=== PATIENT | male | born 1975 | race Caucasian/White ===

== ENCOUNTER 2019-07-16 06:13 | Emergency (ER) | payer MEDICAID, OTHER ==
[~2019-07-16] VITALS: Ht 182.9 cm; Wt 72.6 kg
--- NOTE | 2019-07-16 06:30 | NUR ---
DANIELA 89 REPORTING "MOM COULD NOT WAKE HIM UP" PER EMS, THE RA WERE ABLE TO EASILY WAKE THE PT UP ON ARRIVAL. PT CURRENTLY A, OX3. DOES NOT KNOW WHY HE IS AT THE HOSPITAL. ABLE TO ANSWER ALL THE QUESTIONS BUT SEEMS A LITTLE SLOW. PT DENIED USING ALCOHOL, OR DRUGS. PT WA PLACED ON A MONITOR . VSS. WILL CONT TO MONITOR ,
[2019-07-16 07:11] LABS: BASOPHILS % (AUTO) 0.7 % (0.0-2.0); EOSINOPHILS % (AUTO) 0.1 % (0.0-6.0); HEMATOCRIT 53 % (39-51); HEMOGLOBIN 17.9 g/dL (13.5-17.5); LYMPHOCYTES # (AUTO) 1.6 /CMM (0.8-4.8); LYMPHOCYTES % (AUTO) 40.3 % (20.0-44.0); MEAN CORPUSCULAR HGB CONC 34 g/dl (31.0-36.0); MEAN CORPUSCULAR VOLUME 100 fL (80-96); MONOCYTES # (AUTO) 0.5 /CMM (0.1-1.30); MONOCYTES % (AUTO) 13.8 % (2.0-12.0); NEUTROPHILS # (AUTO) 1.8 /CMM (1.8-8.9); NEUTROPHILS % (AUTO) 45.1 % (43.0-81.0); PLATELET COUNT (AUTO) 221 /CMM (150-450); RED BLOOD CELL COUNT(AUTO) 5.25 MIL/uL (4.5-6.0); WHITE BLOOD COUNT (AUTO) 3.9 K/uL (4.3-11.0)
--- NOTE | 2019-07-16 07:12 | NUR ---
RECEIVED REPORT FROM NICOLÁS CEBALLOS FOR CLARIBEL, PT IS AAOX3, NOT IN RESPIRATORY DISTRESS, V/S STABLE, KEPT RESTED AND COMFORTABLE, WILL CONTINUE TO MONITOR.
[2019-07-16 07:51] LABS: ACETAMINOPHEN 8 ug/ml (10-30); ALANINE AMINOTRANSFERASE 108 U/L (12-78); ALBUMIN 4.3 g/dL (3.4-5.0); ALCOHOL, BLOOD 270 mg/dL (0-0); ALKALINE PHOSPHATASE 76 U/L (46-116); BILIRUBIN,DIRECT 0.3 mg/dL (0.0-0.2); BILIRUBIN,TOTAL 1.4 mg/dL (0.2-1.0); CALCIUM, SERUM 8.7 mg/dL (8.5-10.1); CHLORIDE 98 mmol/L (98-107); CREATININE 0.7 mg/dL (0.6-1.3); GLUCOSE 108 mg/dL (74-106); POTASSIUM 3.5 mmol/L (3.5-5.1); SODIUM SERUM 139 mmol/L (136-145); TOTAL PROTEIN, SERUM 7.8 g/dL (6.4-8.2)
[2019-07-16 08:08] LABS: ASPARTATE AMINOTRANSFERASE 114 U/L (15-37); CARBON DIOXIDE 24 mmol/L (21-32); UREA NITROGEN, BLOOD 8 mg/dL (7-18)
[2019-07-16 08:52] LABS: SALICYLATE < 0.2 mg/dL (2.8-20.0)
--- NOTE | 2019-07-16 12:41 | NUR ---
PT IS ASLEEP ON BED, EASILY AROUSABLE, AAOX3, NOT IN RESPIRATORY DISTRESS ,V/S STABLE, KEPT RESTED AND COMFORTABLE, WILL CONTINUE TO MONITOR.
[2019-07-16 12:51] VITALS: BP 133/81
--- NOTE | 2019-07-16 12:51 | NUR ---
Patient discharged to home in stable condition. Written and verbal after care instructions given. Patient verbalizes understanding of instruction.
== END 2019-07-16 12:52 | disposition home or self-care (01) ==
LOC: ER 06:18
DX: T40.601A Poisoning by unspecified narcotics, accidental (unintentional), initial encounter (principal); T40.5X1A Poisoning by cocaine, accidental (unintentional), initial encounter; R40.0 Somnolence; F19.129 Other psychoactive substance abuse with intoxication, unspecified; Y92.019 Unspecified place in single-family (private) house as the place of occurrence of the external cause; Z82.49 Family history of ischemic heart disease and other diseases of the circulatory system
CPT/HCPCS: 36415; 80048; 80076; 80305; 80307; 80329; 85025; 99285; G0480

== ENCOUNTER 2021-09-04 08:52 | Emergency (ER) | payer MEDICAID, OTHER ==
[~2021-09-04] VITALS: Ht 182.9 cm; Wt 74.8 kg
--- NOTE | 2021-09-04 08:52 | NUR ---
PT [id number] WALKING AROUND [facility], "OD ON HEROINE AND WEED" PT IS AAOX2, NOT IN RESPIRATORY DISTRESS, V/S STABLE, KEPT RESTED AND COMFORATBLE. HOOKED TO V/S MONITOR, KEPT RESTED AND COMFORTABLE. WILL CONTINUE TO MONITOR.
--- NOTE | 2021-09-04 09:40 | NUR ---
SEEN AND EXAMINED BY .
[2021-09-04 10:00] LABS: BASOPHILS # (AUTO) 0.2 K/uL (0.0-0.2); BASOPHILS % (AUTO) 1.2 % (0.0-2.0); EOSINOPHILS % (AUTO) 0.1 % (0.0-6.0); HEMATOCRIT 44 % (39-51); HEMOGLOBIN 14.4 g/dL (13.5-17.5); LYMPHOCYTES # (AUTO) 0.5 K/uL (0.8-4.8); LYMPHOCYTES % (AUTO) 2.7 % (20.0-44.0); MEAN CORPUSCULAR HGB CONC 33 g/dl (31.0-36.0); MEAN CORPUSCULAR VOLUME 96 fL (80-96); MONOCYTES # (AUTO) 0.7 K/uL (0.1-1.30); MONOCYTES % (AUTO) 4.1 % (2.0-12.0); NEUTROPHILS # (AUTO) 15.8 K/uL (1.8-8.9); NEUTROPHILS % (AUTO) 91.9 % (43.0-81.0); PLATELET COUNT (AUTO) 207 K/uL (150-450); RED BLOOD CELL COUNT(AUTO) 4.55 MIL/uL (4.5-6.0); WHITE BLOOD COUNT (AUTO) 17.2 K/uL (4.3-11.0)
[2021-09-04 10:06] LABS: CALCIUM, SERUM 9.4 mg/dL (8.5-10.1); CARBON DIOXIDE 26 mmol/L (21-32); CHLORIDE 104 mmol/L (98-107); CREATININE 1.3 mg/dL (0.6-1.3); GLUCOSE 73 mg/dL (74-106); POTASSIUM 3.7 mmol/L (3.5-5.1); SODIUM SERUM 142 mmol/L (136-145); UREA NITROGEN, BLOOD 24 mg/dL (7-18)
[2021-09-04 10:12] LABS: ACETAMINOPHEN 29 ug/ml (10-30); ALANINE AMINOTRANSFERASE 24 U/L (12-78); ALBUMIN 4.2 g/dL (3.4-5.0); ALCOHOL, BLOOD < 3 mg/dL (0-0); ALKALINE PHOSPHATASE 80 U/L (46-116); ASPARTATE AMINOTRANSFERASE 42 U/L (15-37); BILIRUBIN,DIRECT 0.2 mg/dL (0.0-0.2); BILIRUBIN,TOTAL 0.8 mg/dL (0.2-1.0); TOTAL PROTEIN, SERUM 7.9 g/dL (6.4-8.2)
[2021-09-04] MEDS ORDERED: IV NS 0.9% 1,000 ML BAG IV ONE (11:00)
--- NOTE | 2021-09-04 11:23 | NUR ---
URINE SPECIMEN COLLECTED AND SENT TO LAB.
--- NOTE | 2021-09-04 11:24 | NUR ---
UNABLE TO ESTABLISHED IV LINE. CALLED HOUSE SUP FOR MID LINE.
--- NOTE | 2021-09-04 11:38 | NUR ---
MIDLINE NURSE AT BEDLINE FOR MIDLINE INSERTION
[2021-09-04 11:47] LABS: BILIRUBIN,URINE SMALL (NEGATIVE); COLOR,URINE ORANGE (YELLOW); LEUKOCYTE ESTERASE ,URINE NEGATIVE (NEGATIVE); NITRITE, URINE NEGATIVE (NEGATIVE); PROTEIN,URINE 30 mg/dl (NEGATIVE); UGLUCOSE NEGATIVE (NEGATIVE); UROBILINOGEN,URINE 0.2 EU/dL (0.2)
[2021-09-04 12:01] LABS: BACTERIA,URINE Moderate /HPF (None Seen); SPERM,URINE Many /HPF (None Seen); SQUAMOUS EPITHELIAL CELL,UR Moderate /HPF (None Seen)
--- NOTE | 2021-09-04 16:23 | NUR ---
PATIENT CAN EAT ACCORDING TO DR GOLDMAN
--- NOTE | 2021-09-04 17:25 | NUR ---
COVID SWAB DONE AND SENT TO LAB
--- NOTE | 2021-09-04 18:10 | NUR ---
PT STATED HE IS NOT SUICIDAL AND WANTS TO BE DISCHARGED. AWARE.
--- NOTE | 2021-09-04 18:19 | NUR ---
IV removed. Catheter intact and site benign. Pressure and 4x4 applied to site. No bleeding noted. Patient discharged to home in stable condition. Written and verbal after care instructions given. Patient verbalizes understanding of instruction.
[2021-09-04 18:21] VITALS: BP 128/81
[2021-09-04] MEDS ORDERED: NALO4SPR BNOSTRILS (18:33)
== END 2021-09-04 18:37 | disposition home or self-care (01) ==
LOC: ER 08:56
DX: R45.851 Suicidal ideations (principal); F19.129 Other psychoactive substance abuse with intoxication, unspecified; R44.0 Auditory hallucinations; Z59.00 Homelessness unspecified; R00.0 Tachycardia, unspecified; D72.829 Elevated white blood cell count, unspecified; Z20.822 Contact with and (suspected) exposure to COVID-19
CPT/HCPCS: 36415; 71045; 80048; 80076; 80143; 80307; 80320; 81001; 85025; 87086; 87426; 96360; 99285; C9803; J7030 ×2; G0480

== ENCOUNTER 2021-09-05 20:10 | Emergency (ER) | payer OTHER ==
[~2021-09-05] VITALS: Ht 182.9 cm; Wt 72.6 kg
[~2021-09-05 20:10] MED LIST: NALO4SPR BNOSTRILS
--- NOTE | 2021-09-05 23:11 | NUR ---
CALLED FOR TRIAGE. NO ANSWER
--- NOTE | 2021-09-06 01:32 | NUR ---
BIBS FOR C/O DISTUEBED THOUGHT AND THINKING OF HURTING HIMSELF WITH NO SPECIFIC PLAN. REQUESTING VOLUNTARY PSYCH ADMISSION. PT ALERT. TOLERATING R/A WELL WITH NO SOB. PT AMBULATORY WITH STEADY GAIT. SAFETY MEASURES IN PLACE. PT IN GOWN AND BELONGINGS COLLECTED.
--- NOTE | 2021-09-06 01:44 | NUR ---
URINE AND COVID SAMPLE COLLECTED AND SENT TO LAB
--- NOTE | 2021-09-06 01:52 | NUR ---
CATERING STAFF MEMBER AT PT'S BEDSIDE
[2021-09-06 02:17] LABS: BASOPHILS # (AUTO) 0.1 K/uL (0.0-0.2); BASOPHILS % (AUTO) 1.2 % (0.0-2.0); HEMATOCRIT 44 % (39-51); HEMOGLOBIN 14.8 g/dL (13.5-17.5); LYMPHOCYTES # (AUTO) 2.3 K/uL (0.8-4.8); LYMPHOCYTES % (AUTO) 33.9 % (20.0-44.0); MEAN CORPUSCULAR HGB CONC 34 g/dl (31.0-36.0); MEAN CORPUSCULAR VOLUME 95 fL (80-96); MONOCYTES # (AUTO) 0.3 K/uL (0.1-1.30); MONOCYTES % (AUTO) 4.7 % (2.0-12.0); NEUTROPHILS # (AUTO) 3.7 K/uL (1.8-8.9); NEUTROPHILS % (AUTO) 55.2 % (43.0-81.0); PLATELET COUNT (AUTO) 188 K/uL (150-450); RED BLOOD CELL COUNT(AUTO) 4.62 MIL/uL (4.5-6.0); WHITE BLOOD COUNT (AUTO) 6.7 K/uL (4.3-11.0)
[2021-09-06 02:26] LABS: CALCIUM, SERUM 8.8 mg/dL (8.5-10.1); CARBON DIOXIDE 30 mmol/L (21-32); CHLORIDE 104 mmol/L (98-107); CREATININE 0.7 mg/dL (0.6-1.3); GLUCOSE 99 mg/dL (74-106); POTASSIUM 3.7 mmol/L (3.5-5.1); SODIUM SERUM 138 mmol/L (136-145); UREA NITROGEN, BLOOD 15 mg/dL (7-18)
[2021-09-06 02:50] LABS: BILIRUBIN,URINE SMALL (NEGATIVE); COLOR,URINE YELLOW (YELLOW); LEUKOCYTE ESTERASE ,URINE NEGATIVE (NEGATIVE); NITRITE, URINE NEGATIVE (NEGATIVE); PH,URINE 6.5 (5.0-8.0); PROTEIN,URINE TRACE mg/dl (NEGATIVE); UGLUCOSE NEGATIVE (NEGATIVE)
[2021-09-06 03:03] LABS: ALCOHOL, BLOOD < 3 mg/dL (0-0); ALKALINE PHOSPHATASE 70 U/L (46-116); ASPARTATE AMINOTRANSFERASE 209 U/L (15-37); BILIRUBIN,DIRECT 0.1 mg/dL (0.0-0.2); BILIRUBIN,TOTAL 0.4 mg/dL (0.2-1.0); TOTAL PROTEIN, SERUM 7.6 g/dL (6.4-8.2)
[2021-09-06] MEDS ORDERED: IBUPROFEN 400 MG TABLET PO ONE (03:30)
[2021-09-06 03:31] LABS: ACETAMINOPHEN 0 ug/ml (10-30)
[2021-09-06] MEDS ORDERED: IBUPROFEN 400 MG TABLET ONE (03:41)
[2021-09-06 03:50] LABS: ALANINE AMINOTRANSFERASE 95 U/L (12-78)
--- NOTE | 2021-09-06 06:06 | NUR ---
FACESHEET AND CLINICALS FAXED TO [facility].
--- NOTE | 2021-09-06 08:22 | NUR ---
PER INTAKE NO ACCEPTANCE YET FROM THE SUP. WILL CONTINUE TO FOLLOW UP.
[2021-09-06] MEDS ORDERED: clonazePAM 1 MG TABLET ONE (08:58)
[2021-09-06] MEDS ORDERED: clonazePAM 1 MG TABLET PO ONE (09:00)
--- NOTE | 2021-09-06 09:22 | NUR ---
NICHO MORAN FROM INTAKE TO F/U ON TX,WAITING ON BE
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
--- NOTE | 2021-09-06 12:30 | NUR ---
LUNCH SERVED. THE PATIENT TOLERATED WELL.
[2021-09-06 15:03] VITALS: BP 131/84
--- NOTE | 2021-09-06 17:30 | NUR ---
DINNER SERVED. THE PATIENT TOLERATED WELL.
--- NOTE | 2021-09-06 20:46 | NUR ---
ACCEPTED [facility] TERRENCE MAE REPORT [phone]
--- NOTE | 2021-09-06 20:49 | NUR ---
[facility] ETA: 15-20 MIN
--- NOTE | 2021-09-06 21:04 | NUR ---
REPORT GIVEN TO CLARISSE AT [facility]
--- NOTE | 2021-09-06 21:42 | NUR ---
TRANSFERRED TO [facility] IN STABLE CONDITION. BELONGINGS PICKED UP
== END 2021-09-06 21:42 ==
LOC: ER 20:17
DX: R45.851 Suicidal ideations (principal); F22 Delusional disorders; Z59.00 Homelessness unspecified; E89.0 Postprocedural hypothyroidism; F19.90 Other psychoactive substance use, unspecified, uncomplicated; Z20.822 Contact with and (suspected) exposure to COVID-19

== ENCOUNTER 2022-03-29 21:14 | Inpatient (IN) | payer OTHER ==
[~2022-03-29] VITALS: Ht 170.2 cm; Wt 76.2 kg
--- NOTE | 2022-03-29 21:47 | NUR ---
URINE SPECIMEN SENT TO LAB
--- NOTE | 2022-03-29 21:47 | NUR ---
IV CANNULA G18 INSERTED ON RIGHT HAND. BLOOD DRAWN AND SENT TO LAB
[2022-03-29 21:50] LABS: BASOPHILS % (AUTO) 0.4 % (0.0-2.0); EOSINOPHILS % (AUTO) 2.9 % (0.0-6.0); HEMATOCRIT 43 % (39-51); HEMOGLOBIN 14.3 g/dL (13.5-17.5); LYMPHOCYTES # (AUTO) 1.3 K/uL (0.8-4.8); LYMPHOCYTES % (AUTO) 16.9 % (20.0-44.0); MEAN CORPUSCULAR HGB CONC 33 g/dl (31.0-36.0); MEAN CORPUSCULAR VOLUME 96 fL (80-96); MONOCYTES # (AUTO) 0.5 K/uL (0.1-1.30); MONOCYTES % (AUTO) 6.2 % (2.0-12.0); NEUTROPHILS # (AUTO) 5.9 K/uL (1.8-8.9); NEUTROPHILS % (AUTO) 73.6 % (43.0-81.0); PLATELET COUNT (AUTO) 196 K/uL (150-450); RED BLOOD CELL COUNT(AUTO) 4.47 MIL/uL (4.5-6.0)
--- NOTE | 2022-03-29 21:58 | NUR ---
FATHER (VITA) [phone]. PLS CALL FOR UPDATE
[2022-03-29] MEDS ORDERED: NALOXONE PREFILLED SYRINGE 2 MG/2 ML SYRINGE ONE ×2 (22:04→22:32)
[2022-03-29 22:13] LABS: ALANINE AMINOTRANSFERASE 27 U/L (12-78); ALBUMIN 4.1 g/dL (3.4-5.0); ALCOHOL, BLOOD < 3 mg/dL (0-0); ALKALINE PHOSPHATASE 93 U/L (46-116); ASPARTATE AMINOTRANSFERASE 32 U/L (15-37); BILIRUBIN,DIRECT 0.2 mg/dL (0.0-0.2); BILIRUBIN,TOTAL 0.7 mg/dL (0.2-1.0); CALCIUM, SERUM 9.3 mg/dL (8.5-10.1); CARBON DIOXIDE 29 mmol/L (21-32); CHLORIDE 100 mmol/L (98-107); CREATININE 0.9 mg/dL (0.6-1.3); GLUCOSE 85 mg/dL (74-106); POTASSIUM 3.6 mmol/L (3.5-5.1); SODIUM SERUM 136 mmol/L (136-145); TOTAL PROTEIN, SERUM 7.8 g/dL (6.4-8.2); UREA NITROGEN, BLOOD 20 mg/dL (7-18)
[2022-03-29] MEDS ORDERED: NALOXONE HCL 0.4 MG/ML AMPUL IV ONE ×2 (22:30→23:00)
[2022-03-29] MEDS ORDERED: IV NS 0.9% 1,000 ML BAG IV ONE (22:30)
--- NOTE | 2022-03-29 22:33 | NUR ---
XRAY AT BEDSIDE
--- NOTE | 2022-03-29 22:47 | NUR ---
COVID SWAB DONE AND SENT TO LAB
--- NOTE | 2022-03-29 22:58 | NUR ---
IFC F16 INSERTED AND ATTACHED TO UROBAG
[2022-03-29] MEDS ORDERED: SUCCINYLCHOLINE CHLORIDE 20 MG/ML VIAL IV ONE (23:00)
[2022-03-29] MEDS ORDERED: ETOMIDATE 2 MG/ML VIAL IV ONE (23:00)
--- NOTE | 2022-03-29 23:00 | NUR ---
PT FOR INTUBATION. AMBUBAGGING DONE AT 15LPM. MD, RT AND CN AT BEDSIDE
--- NOTE | 2022-03-29 23:06 | NUR ---
INTUBATION DONE BY DR RICE UNDER SEDATION. ET SIZE 7.5 WITH LIP LEVEL OF 27CM. NGTUBE INSERTED ON LEFT NOSTRIL LEVEL OF 76CM. ATTACHED TO VENT WITH SETTINGS OF: TV 550, FiO2 100, PEEP of 5, RATE OF 16.
[2022-03-29 23:12] LABS: BILIRUBIN,URINE 1+ (NEGATIVE); COLOR,URINE DARK YELLOW (YELLOW); LEUKOCYTE ESTERASE ,URINE NEGATIVE (NEGATIVE); NITRITE, URINE NEGATIVE (NEGATIVE); PROTEIN,URINE TRACE mg/dl (NEGATIVE); UGLUCOSE NEGATIVE (NEGATIVE); UROBILINOGEN,URINE 0.2 EU/dL (0.2)
--- NOTE | 2022-03-29 23:22 | NUR ---
RT NOTE Pt rec'd on NRB MASK @ 15LPM. pt showed Altered LOC and shallow breathing. Pt orally intubated via ETT sz #7.5 secured at 24CM at the lipline. Color change noted via CO2 detector. Clear bilateral breath sounds heard on auscultation. Waiting Chest XRAY RESULTS. Pt placed on noted [facility] vent settings via Sera MOTTA. Alarms are set and audible. Ambu bag at bedside. Vent plugged into red outlet. ABG to be taken within 1HR. Addendum: 03/29/22 at 2328 by LUISA DELAROSA RT Amended: Links added.
[2022-03-29] MEDS ORDERED: PROPOFOL 100 ML IV PRN (23:30)
--- NOTE | 2022-03-29 23:37 | NUR ---
ET TUBE WAS PUSHED IN TO 27 @ LIP PER CXR RESULT AND MD'S ORDER
--- NOTE | 2022-03-29 23:40 | NUR ---
UPDATE GIVEN TO FATHER VITA THAT PATIENT IS INTUBATED TO PROTECT HIS AIRWAY.
--- NOTE | 2022-03-29 23:40 | NUR ---
RT NOTE LATE ENTRY ETT ADVANCED TO 27CM PER CHEST XRAY RESULTS AND MD RICE ORDERS Addendum: 03/29/22 at 2350 by LUISA DELAROSA RT Amended: Links added.
[2022-03-29 23:51] LABS: BACTERIA,URINE Rare /HPF (None Seen); RBC,URINE 0-2 /HPF (0-2); SQUAMOUS EPITHELIAL CELL,UR Few /HPF (None Seen)
[2022-03-30] VITALS (23 sets, daily range): BP systolic 97–123; BP diastolic 44–89
[2022-03-30] MEDS ORDERED: MAG HYDROX/AL HYDROX/SIMETH 30 ML UDC PO PRN
[2022-03-30] MEDS ORDERED: NOREPINEPHRINE 8 MG in IV NS 0.9% 242 ML IV PRN ×2
[2022-03-30] MEDS ORDERED: MAGNESIUM HYDROXIDE 30 ML UDC PO PRN
[2022-03-30] MEDS ORDERED: ZOLPIDEM TARTRATE 5 MG TABLET PO PRN
[2022-03-30] MEDS ORDERED: Z GUARD REMEDY 4 OZ OINT TP PRN
[2022-03-30] MEDS ORDERED: ACETAMINOPHEN 325 MG TABLET PO PRN
[2022-03-30] MEDS ORDERED: ONDANSETRON HCL/PF 4 MG/2 ML VIAL IVP PRN
--- NOTE | 2022-03-30 00:05 | NUR ---
NGTUBE NOT IN SITU. NGT G16 INSERTED. VERIFIED BY XRAY
--- NOTE | 2022-03-30 00:09 | NUR ---
SEEN BY KYLE LANCASTER AT BEDSIDE
[2022-03-30 00:58] LABS: ABG BASE EXCESS -1.3 mmol/L; ABG PCO2 36.5 mmHg (35.0-45.0); ABG PH 7.414 (7.350-7.450); ABG PO2 522.5 mmHg (75.0-100.0); COHb 0.5 % (0.5-1.5); MetHb 0.5 % (0.0-1.5); O2Hb 98.6 % (94.0-97.0); SITE, ABG Right Radial; VENT MODE, BG AC 16 550 100% +5
--- NOTE | 2022-03-30 01:52 | NUR ---
SPOKE TO [employer] PURCHASE DRIVER AND GOT AUTH TO BARBARA THE PT. AUTH # [id number]
--- NOTE | 2022-03-30 02:02 | NUR ---
PT IS MOVING AND BITING THE ET TUBE. PROPOFOL STARTED AT 5mg/kg/min. BP 127/98mmHg
--- NOTE | 2022-03-30 02:30 | NUR ---
FROM [id number]. PROPOFOL DRIP ADJUSTED TO INCREMENT OF 5CG/KG/MIN UNTIL REACH DESIRED DOSE OF 30MCG/KG/MIN TO MAINTAIN SEDATION OF PATIENT.
--- NOTE | 2022-03-30 02:42 | NUR ---
RT AT PT'S BEDSIDE FOR ABG; RT NOTIFIGED DR. KRYSTAL MOTTA ABG RESULTS
--- NOTE | 2022-03-30 02:45 | NUR ---
SUCTION SECRETIONS DONE
[2022-03-30] MEDS ORDERED: ENOXAPARIN SODIUM 40 MG/0.4 ML DISP.SYRIN SQ SCH ×2 (03:40)
[2022-03-30] MEDS ORDERED: PIPERACILLIN /TAZOBACTAM 3.375 G in IV D5W 50 ML IV ONE (04:00)
[2022-03-30] MEDS ORDERED: PIPERACILLIN /TAZOBACTAM 3.375 G VIAL IV ONE (04:56)
--- NOTE | 2022-03-30 05:00 | NUR ---
BED WORKER AT BEDSIDE
--- NOTE | 2022-03-30 05:06 | NUR ---
SUCTION SECRETIONS DONE
--- NOTE | 2022-03-30 05:27 | NUR ---
RT AT PT'S BEDSIDE
[2022-03-30 05:36] LABS: ABG BASE EXCESS -0.7 mmol/L; ABG PH 7.435 (7.350-7.450); ABG PO2 178.1 mmHg (75.0-100.0); COHb 0.3 % (0.5-1.5); MetHb 0.3 % (0.0-1.5); O2Hb 98.4 % (94.0-97.0); SITE, ABG Right Brachial; VENT MODE, BG AC 16 550 40% +5
--- NOTE | 2022-03-30 05:38 | NUR ---
ABG DONE AT BEDSIDE
[2022-03-30 06:41] LABS: CALCIUM, SERUM 8.7 mg/dL (8.5-10.1); CREATININE 0.7 mg/dL (0.6-1.3); MAGNESIUM 2.4 mg/dL (1.8-2.4); PHOSPHORUS 3.2 mg/dL (2.5-4.9); POTASSIUM 3.9 mmol/L (3.5-5.1)
[2022-03-30] MEDS ORDERED: PROPOFOL 100 ML ONE (06:54)
--- NOTE | 2022-03-30 07:18 | NUR ---
REPORT GIVEN TO NICOLÁS ANDREWS
[2022-03-30 07:22] LABS: BASOPHILS % (AUTO) 0.2 % (0.0-2.0); HEMATOCRIT 43 % (39-51); HEMOGLOBIN 14.7 g/dL (13.5-17.5); LYMPHOCYTES # (AUTO) 1.8 K/uL (0.8-4.8); LYMPHOCYTES % (AUTO) 23.5 % (20.0-44.0); MEAN CORPUSCULAR HGB CONC 34 g/dl (31.0-36.0); MEAN CORPUSCULAR VOLUME 98 fL (80-96); MONOCYTES # (AUTO) 0.7 K/uL (0.1-1.30); MONOCYTES % (AUTO) 9.5 % (2.0-12.0); NEUTROPHILS # (AUTO) 4.9 K/uL (1.8-8.9); NEUTROPHILS % (AUTO) 65.8 % (43.0-81.0); PLATELET COUNT (AUTO) 175 K/uL (150-450); RED BLOOD CELL COUNT(AUTO) 4.43 MIL/uL (4.5-6.0); WHITE BLOOD COUNT (AUTO) 7.5 K/uL (4.3-11.0)
--- NOTE | 2022-03-30 08:49 | NUR ---
REPORT GIVEN TO ELIOT FOR CLARIBEL
--- NOTE | 2022-03-30 09:44 | NUR ---
PT TRANSFERRED TO ICU WITH ACLS PROTOCOLS IN PLACE ACCOMPANIED BY RT
--- NOTE | 2022-03-30 10:00 | NUR ---
ICU/RN PT IS ADMITED FROM ER .INTUBATED ,ON THE VENT AC MODE,FIO2-30%,SAT O2-100%.PT IS ON DIPRIVAN ,AGITATED ,BILATERAL SOFT WRIST RESTRAINS ON.F/C DRAINING WITH ELIAZAR URINE.SKIN INTACT.NG TUBE CLAMPED.V/S STABLE ,AFEBRILE.NO PAIN REPORTED AT THIS TIME.AM CARE PROVIDED.DUE MEDS ARE GIVEN ORDERED.SUCTION PROVIDED.REPOSITION FOR COMFORT
[2022-03-30] MEDS: PANTOPRAZOLE 40 MG VIAL IV SCH (10:22)
[2022-03-30] MEDS: PROPOFOL 100 ML IV PRN ×5 (10:23→23:23)
[2022-03-30] MEDS: IV NS 0.9% 1,000 ML IV PRN (10:25)
--- NOTE | 2022-03-30 11:00 | NUR ---
ICU/RN RIGHT UPPER ARM MID LINE INSERTED ORDERED.DIPRIVAN INCREASED PER PROTOCOL.LABS REVIEW.
[2022-03-30] MEDS ORDERED: PIPERACILLIN /TAZOBACTAM 3.375 G in IV D5W 50 ML IV SCH (12:00)
[2022-03-30] MEDS: PIPERACILLIN /TAZOBACTAM 3.375 G in IV D5W 100 ML IV SCH ×2 (12:16→20:22)
--- NOTE | 2022-03-30 18:19 | NUR ---
ICU/RN PM CARE PROVIDED.DUE MEDS ARE GIVEN ORDERED.V/S STABLE,AFEBRILE.NO PAIN REPORTED AT THIS TIME.PT IS SEDATED WITH DIPRIVAN.SUCTION PROVIDED.REPOSITION FOR COMFORT.CONTINUE MONITORING.
--- NOTE | 2022-03-30 19:30 | NUR ---
ICU/BOATBUILDER SUPERVISOR PT APPEARS TO BE WAKING UP SOME MILD AGITATION WAS NOTED, NOTIFED THE CHARGE NURSE WHO THEN INCREASED THE SEDATION FROM 45MCG TO 50MCG. WILL CONTINUE TO MONITOR THIS PT.
[2022-03-30] MEDS: MORPHINE SULFATE INJ 2 MG/ML DISP.SYRIN IV PRN (19:50)
--- NOTE | 2022-03-30 20:00 | NUR ---
ICU/PODIATRIC FOOT AND ANKLE SPECIALIST PT WOKE UP SOME THEN SAID HE WAS IN PAIN TO BACK WHICH IS CHRONIC, CHARGE NURSE MADE AWARE WHO THEN GAVE PRN MORPHINE 4MG IVP. WILL CONTINUE TO MONITOR THIS PT AND HIS PAIN.
[2022-03-30] MEDS ORDERED: SUCCINYLCHOLINE CHLORIDE 20 MG/ML VIAL IJ ONE (20:16)
[2022-03-30] MEDS ORDERED: ETOMIDATE 2 MG/ML VIAL IV ONE (20:20)
[2022-03-30] MEDS: ENOXAPARIN SODIUM 40 MG/0.4 ML DISP.SYRIN SQ SCH (20:23)
--- NOTE | 2022-03-30 20:28 | NUR ---
PT INTUBATED 7.5 ETT SECURED AT 27CM AT THE LIP. NO RESP DISTRESS. PT TOLERATING VENT SETTINGS. VENT ALARMS SET AND AUDIBLE. AMBU BAG AT BEDSIDE. CONTINUE TO MONITOR. Addendum: 03/30/22 at 2028 by DENZEL MARIN RT Amended: Links added.
[2022-03-31] VITALS (30 sets, daily range): BP systolic 97–124; BP diastolic 52–89
[2022-03-31] MEDS: PROPOFOL 100 ML IV PRN ×2 (03:02→05:41)
[2022-03-31] MEDS: MORPHINE SULFATE INJ 2 MG/ML DISP.SYRIN IV PRN (03:03)
--- NOTE | 2022-03-31 03:31 | NUR ---
ICU/PEANUT SEPARATOR PT WOKE UP SOME THEN COMPLAINED HE WAS IN PAIN TO BACK WHICH IS CHRONIC, CHARGE NURSE MADE AWARE WHO THEN GAVE PRN MORPHINE 4MG IVP. WILL CONTINUE TO MONITOR THIS PT AND HIS PAIN.
[2022-03-31 04:58] LABS: BASOPHILS # (AUTO) 0.1 K/uL (0.0-0.2); BASOPHILS % (AUTO) 0.6 % (0.0-2.0); EOSINOPHILS % (AUTO) 2.7 % (0.0-6.0); HEMATOCRIT 40 % (39-51); HEMOGLOBIN 13.6 g/dL (13.5-17.5); LYMPHOCYTES # (AUTO) 1.3 K/uL (0.8-4.8); LYMPHOCYTES % (AUTO) 15.8 % (20.0-44.0); MEAN CORPUSCULAR HGB CONC 34 g/dl (31.0-36.0); MEAN CORPUSCULAR VOLUME 97 fL (80-96); MONOCYTES # (AUTO) 0.5 K/uL (0.1-1.30); MONOCYTES % (AUTO) 6.2 % (2.0-12.0); NEUTROPHILS # (AUTO) 6.1 K/uL (1.8-8.9); NEUTROPHILS % (AUTO) 74.7 % (43.0-81.0); PLATELET COUNT (AUTO) 179 K/uL (150-450); RED BLOOD CELL COUNT(AUTO) 4.15 MIL/uL (4.5-6.0); WHITE BLOOD COUNT (AUTO) 8.2 K/uL (4.3-11.0)
[2022-03-31 05:18] LABS: CALCIUM, SERUM 7.9 mg/dL (8.5-10.1); CREATININE 0.8 mg/dL (0.6-1.3); MAGNESIUM 1.7 mg/dL (1.8-2.4); PHOSPHORUS 3.7 mg/dL (2.5-4.9); POTASSIUM 3.5 mmol/L (3.5-5.1)
[2022-03-31] MEDS: PIPERACILLIN /TAZOBACTAM 3.375 G in IV D5W 100 ML IV SCH (05:37)
[2022-03-31] MEDS: IV NS 0.9% 1,000 ML IV PRN ×2 (06:04→23:22)
[2022-03-31] MEDS ORDERED: DC PROPOFOL WHEN EXTUBATED XX PRN (07:00)
--- NOTE | 2022-03-31 07:30 | NUR ---
ICU/RN PT IS INTUBATED ON THE VENT ,AC MODE.FIO2-30%.SAT O2 -100%.V/S STABLE AFEBRILE.SEDATED WITH DIPRIVAN .IV INFUSING ORDERED.RIGHT UPPER ARM ML.NG TUBE CLAMPED.SKIN INTACT .BILATERAL SOFT WRIST RESTRAINS ON.LABS REVIEW. NOTIFIED.NEW ORDERS RECEIVED.REPOSITION FOR COMFORT.SUCTION PROVIDED.
[2022-03-31] MEDS ORDERED: Magnesium 1GM/D5W 100ML PREMIX 100 ML IV SCH (08:00)
[2022-03-31] MEDS: PANTOPRAZOLE 40 MG VIAL IV SCH (08:07)
--- NOTE | 2022-03-31 08:35 | NUR ---
ICU/RN MICHAEL ROMAN.
--- NOTE | 2022-03-31 08:50 | NUR ---
ICU/RN PT IS EXTUBATED ORDERED.AWAKE.ALERT-4.V/S STABLE ,AFEBRILE.PLACED ON 2L N/C ,SAT O2-95 %.T -101.2 TYLENOL PO GIVEN .F/C DRAINING WITH ELIAZAR URINE.RESTRAINS REMOVED.
--- NOTE | 2022-03-31 08:50 | NUR ---
pt extubated placed on n/c zero distress noted.
[2022-03-31] MEDS ORDERED: LORAZEPAM INJ 2 MG/ML VIAL IV PRN ×2 (10:30→14:30)
[2022-03-31] MEDS: LORAZEPAM INJ 2 MG/ML VIAL IVP PRN ×3 (11:03→21:30)
--- NOTE | 2022-03-31 11:08 | NUR ---
ICU/RN ATIVAN 1 MG IV GIVEN ORDERED.
--- NOTE | 2022-03-31 16:10 | NUR ---
ICU/RN PM CARE PROVIDED.PT IS STABLE FOR TRANSFER TO [facility]. V/S STABLE,AFEBRILE. NO PAIN REPORTED AT THIS TIME. F/C D/C .WAITING FOR THE BED.
--- NOTE | 2022-03-31 18:50 | NUR ---
ICU/RN PT TRANSFER TO [facility] UNIT.V/S STABLE,AFEBRILE.
--- NOTE | 2022-03-31 19:00 | NUR ---
MS RN ADMITTING/TRANSFER NOTES PT ARRIVED BY WHEELCHAIR FROM ICU @ 1900. PT A/O X4, COOPERATIVE, NOTED WITH SOME LETHARGY. VS: 115/70 BP, 80 PULSE, 12 RR, 95% O2, 97.8 TEMP. NO S/S OF SOB OR LABORED BREATHING. PT PLACED IN SEMI-FOWLERS POSITION. DENIES PAIN AT THIS TIME. IV MIDLINE NIRU 18G SL, PATENT AND INTACT. STARTED ON NS 0.9% 1000ML @ 75 ML/HR. PT PROVIDED WATER, SNACKS AND JUICES PER PT REQUEST. SKIN INTACT AFTER ASSESSMENT. SAFETY PRECAUTIONS IN PLACE: BED LOCKED AND IN LOW POSITION, SIDE RAILS UP X2, CALL LIGHT AND TRAY TABLE WITHIN REACH. WILL CONTINUE TO MONITOR AND ASSIST.
[2022-03-31] MEDS: ENOXAPARIN SODIUM 40 MG/0.4 ML DISP.SYRIN SQ SCH (22:00)
[2022-04-01 01:33] VITALS: BP 120/69
[2022-04-01] MEDS: LORAZEPAM INJ 2 MG/ML VIAL IVP PRN ×5 (02:46→22:29)
--- NOTE | 2022-04-01 03:30 | NUR ---
RN NOTE PT NOTED WITH WITHDRAWAL SYMPTOMS: CHILLS, DIAPHORESIS. VS MEASURED: 98/70 BP, 80 PULSE, 98.3 TEMP, 93% O2, 13 RR. WILL CONTINUE TO MONITOR.
--- NOTE | 2022-04-01 04:45 | NUR ---
RN NOTE PT SLEEPING IN BED AT THE MOMENT WITH NO S/S OF SOB OR DISTRESS. WILL CONTINUE TO MONITOR.
--- NOTE | 2022-04-01 06:45 | NUR ---
MS RN CLOSING NOTES PT IN BED, SLEEPING AT THIS TIME. A/O X4, COOPERATIVE, NOTED WITH SOME LETHARGY. STABLE ON RA WITH NO S/S OF SOB OR LABORED BREATHING. DENIES PAIN AT THIS TIME. IV MIDLINE NIRU 18G PATENT AND INTACT, RUNNING NS 0.9% @ 75 ML/HR. ALL CARE PROVIDED AND ADMINISTERED MEDICATIONS TOLERATED WELL. SAFETY PRECAUTIONS IN MAINTAINED: BED LOCKED AND IN LOW POSITION, SIDE RAILS UP X2, CALL LIGHT AND TRAY TABLE WITHIN REACH. WILL ENDORSE CLARIBEL TO ONLINE TRADER NURSE.
[2022-04-01 07:19] LABS: BASOPHILS % (AUTO) 0.2 % (0.0-2.0); EOSINOPHILS % (AUTO) 2.6 % (0.0-6.0); HEMATOCRIT 39 % (39-51); LYMPHOCYTES # (AUTO) 1.4 K/uL (0.8-4.8); LYMPHOCYTES % (AUTO) 15.7 % (20.0-44.0); MEAN CORPUSCULAR HGB CONC 33 g/dl (31.0-36.0); MEAN CORPUSCULAR VOLUME 97 fL (80-96); MONOCYTES # (AUTO) 0.6 K/uL (0.1-1.30); MONOCYTES % (AUTO) 7.2 % (2.0-12.0); NEUTROPHILS # (AUTO) 6.7 K/uL (1.8-8.9); NEUTROPHILS % (AUTO) 74.3 % (43.0-81.0); PLATELET COUNT (AUTO) 163 K/uL (150-450); RED BLOOD CELL COUNT(AUTO) 4.02 MIL/uL (4.5-6.0)
--- NOTE | 2022-04-01 07:29 | NUR ---
RN OPENING NOTES RECEIVED PATIENT ASLEEP IN BED, EASILY AROUSED. NO SIGNS OF ACUTE DISTRESS NOTED. ON ROOM AIR, NO SOB NOTED, BREATHING EVEN AND UNLABORED. NOTED WITH MIDLINE ON RIGHT UPPER ARM #18G, INTACT AND PATENT WITH NS @ 75ML/HR INFUSING WELL. SAFETY MEASURE IN PLACE.ED IN LOWEST AND LOCKED POSITION, SIDE RAILS UP X2, CALL LIGHT PLACED WITHIN EASY REACH. WILL CONTINUE TO MONITOR PATIENT.
[2022-04-01 07:47] LABS: CALCIUM, SERUM 7.8 mg/dL (8.5-10.1); CREATININE 0.6 mg/dL (0.6-1.3); MAGNESIUM 1.9 mg/dL (1.8-2.4); PHOSPHORUS 2.6 mg/dL (2.5-4.9); POTASSIUM 3.2 mmol/L (3.5-5.1)
[2022-04-01 08:00] VITALS: BP 108/65
[2022-04-01] MEDS: PANTOPRAZOLE 40 MG VIAL IV SCH (08:33)
[2022-04-01] MEDS: POTASSIUM CHLORIDE 20 MEQ TAB.PRT.SR PO SCH ×2 (09:27→10:31)
[2022-04-01] MEDS: IV NS 0.9% 1,000 ML IV PRN (10:35)
[2022-04-01 16:00] VITALS: BP 110/60
--- NOTE | 2022-04-01 18:43 | NUR ---
RN CLOSING NOTE PATIENT RESTING IN BED, EASILY AROUSED. A/O X4. NO SIGNS OF ACUTE DISTRESS NOTED. REMAINS STABLE ON ROOM AIR, NO SOB NOTED, BREATHING EVEN AND UNLABORED. MIDLINE ON RIGHT UPPER ARM #18G, INTACT AND PATENT WITH NS @ 75ML/HR INFUSING WELL. LORAZEPAM 1 MG IVP GIVEN NEEDED. SAFETY MEASURE MAINTAINED. BED IN LOWEST AND LOCKED POSITION, SIDE RAILS UP X2, CALL LIGHT PLACED WITHIN EASY REACH. WILL ENDORSE TO NEXT SHIFT FOR CONTINUITY OF CARE.
--- NOTE | 2022-04-01 20:12 | NUR ---
RN OPENING NOTES RECEIVED PATIENT ASLEEP IN BED, EASILY AROUSED. NO SIGNS OF ACUTE DISTRESS NOTED. ON ROOM AIR, NO SOB NOTED, BREATHING EVEN AND UNLABORED. NOTED WITH MIDLINE ON RIGHT UPPER ARM #18, INTACT AND PATENT WITH NS @ 75ML/HR INFUSING WELL. SAFETY MEASURE IN PLACE.ED IN LOWEST AND LOCKED POSITION, SIDE RAILS UP X2, CALL LIGHT PLACED WITHIN EASY REACH. WILL CONTINUE TO MONITOR PATIENT.
--- NOTE | 2022-04-01 21:20 | NUR ---
MS RN OPENING NOTE RECEIVED REPORT FROM ERIC, RN. PATIENT AWAKE, ALERT AND ORIENTED X4. ABLE TO MAKE NEEDS KNOWN. AFEBRILE AND NOT IN ANY FORM OF ACUTE DISTRESS. BREATHING EVEN AND NON LABORED. NO C/O PAIN OR DISCOMFORT. WITH IV ACCESS ON R UPPER ARM MIDLINE 18G RUNNING WITH NS AT 75ML/HR. SAFETY MEASURES IN PLACE. KEPT BED IN LOCKED AND IN LOW POSITION. SIDE RAILS UP X2. ADVISED TO USE THE CALL LIGHT WHEN IN NEED OF ASSISTANCE.
[2022-04-01] MEDS: ENOXAPARIN SODIUM 40 MG/0.4 ML DISP.SYRIN SQ SCH (21:46)
[2022-04-02] MEDS: IV NS 0.9% 1,000 ML IV PRN ×2 (02:55→15:58)
[2022-04-02] MEDS: LORAZEPAM INJ 2 MG/ML VIAL IVP PRN ×5 (02:56→20:16)
--- NOTE | 2022-04-02 06:33 | NUR ---
MS RN CLOSING NOTE PATIENT IN BED, ASLEEP BUT EASY TO AROUSE AND RESPONSIVE. ALERT AND ORIENTED X4. ABLE TO MAKE NEEDS KNOWN. AFEBRILE AND NOT IN ANY FORM OF ACUTE DISTRESS. BREATHING EVEN AND NON LABORED. WITH IV ACCESS ON R UPPER ARM MIDLINE 18G RUNNING WITH NS AT 75ML/HR. MEDICATED ORDERED. SAFETY MEASURES IN PLACE. KEPT BED IN LOCKED AND IN LOW POSITION. SIDE RAILS UP X2. ADVISED TO USE THE CALL LIGHT WHEN IN NEED OF ASSISTANCE. ADVISED TO TURN AND REPOSITION EVERY 2 HOURS AND TOLERATED. CONSTANT VISUAL CHECK DONE TO ENSURE SAFETY. ALL NURSING NEEDS ATTENDED. ENDORSED TO INCOMING SHIFT FOR CONTINUITY OF CARE.
--- NOTE | 2022-04-02 07:53 | NUR ---
RN OPENING NOTE PATIENT AWAKE IN BED RESTING A/O X 4. NO S/S OF PAIN NOTED AT THIS TIME. ON ROOM AIR, NO DISTRESS OR SHORTNESS OF BREATH NOTED. IV ACCESS NIRU MIDLINE, INTACT, PATENT AND FLUSHING WELL. FALL AND SAFETY MEASURES IN PLACE, BED ALARM ON, BED IN LOW AND LOCK POSITION, CALL LIGHT AND TABLE WITHIN EASY REACH, SIDE RAILS X2. WILL CONTINUE TO MONITOR.
[2022-04-02 08:16] LABS: BASOPHILS % (AUTO) 0.3 % (0.0-2.0); EOSINOPHILS % (AUTO) 5.8 % (0.0-6.0); HEMATOCRIT 37 % (39-51); HEMOGLOBIN 12.7 g/dL (13.5-17.5); LYMPHOCYTES # (AUTO) 1.2 K/uL (0.8-4.8); LYMPHOCYTES % (AUTO) 16.1 % (20.0-44.0); MEAN CORPUSCULAR HGB CONC 34 g/dl (31.0-36.0); MEAN CORPUSCULAR VOLUME 96 fL (80-96); MONOCYTES # (AUTO) 0.5 K/uL (0.1-1.30); MONOCYTES % (AUTO) 7.1 % (2.0-12.0); NEUTROPHILS # (AUTO) 5.1 K/uL (1.8-8.9); NEUTROPHILS % (AUTO) 70.7 % (43.0-81.0); PLATELET COUNT (AUTO) 182 K/uL (150-450); RED BLOOD CELL COUNT(AUTO) 3.89 MIL/uL (4.5-6.0); WHITE BLOOD COUNT (AUTO) 7.2 K/uL (4.3-11.0)
[2022-04-02 08:36] VITALS: BP 125/82
[2022-04-02 08:39] LABS: CALCIUM, SERUM 8.2 mg/dL (8.5-10.1); CREATININE 0.6 mg/dL (0.6-1.3); MAGNESIUM 1.9 mg/dL (1.8-2.4); POTASSIUM 3.2 mmol/L (3.5-5.1)
[2022-04-02] MEDS: PANTOPRAZOLE 40 MG TABLET.DR PO SCH ×2 (09:00→09:04)
[2022-04-02] MEDS ORDERED: POTASSIUM CHLORIDE 20 MEQ TAB.PRT.SR PO ONE (11:00)
[2022-04-02 16:11] VITALS: BP 114/74
--- NOTE | 2022-04-02 18:41 | NUR ---
RN CLOSING NOTE PATIENT AWAKE IN BED RESTING A/O X 4. NO S/S OF PAIN NOTED AT THIS TIME. ON ROOM AIR, NO DISTRESS OR SHORTNESS OF BREATH NOTED. IV ACCESS NIRU MIDLINE, INTACT, PATENT AND FLUSHING WELL. FALL AND SAFETY MEASURES IN PLACE, BED ALARM ON, BED IN LOW AND LOCK POSITION, CALL LIGHT AND TABLE WITHIN EASY REACH, SIDE RAILS UP X2. WILL ENDORSE TO CLIENT ACCOUNT REPRESENTATIVE.
--- NOTE | 2022-04-02 19:00 | NUR ---
noc rn opening note received patient standing from bed side. a/ox4. no s/s of apparent distress on room air. no c/o pain but asking for his ativan, anxious. call light within reach. safety in place. will continue with patient's plan of care.
[2022-04-02] MEDS: ENOXAPARIN SODIUM 40 MG/0.4 ML DISP.SYRIN SQ SCH (21:22)
--- NOTE | 2022-04-02 21:58 | NUR ---
PM PATIENT HAND OFF - RECEIVED PATIENT IN BED, AWAKE, AOX4, ABLE TO MAKE NEEDS KNOWN, PATIENT NOT IN ANY DISTRESS, PATIENT HAS NIRU MIDLINE G#18 WITH RUNNING NS AT 75 ML/HR. SAFETY MEASURES IN PLACE: BED AT LOWEST POSITION, LOCKED, SIDE RAILS UP X2, CALL LIGHT WITHIN REACH. WILL CONTINUE TO MONITOR DURING MY SHIFT.
--- NOTE | 2022-04-02 23:37 | NUR ---
report given to NICOLÁS LOVE for continuity of patient care.
[2022-04-02 23:48] VITALS: BP 125/90
[2022-04-03] MEDS: LORAZEPAM INJ 2 MG/ML VIAL IVP PRN ×3 (00:18→08:27)
[2022-04-03] MEDS: IV NS 0.9% 1,000 ML IV PRN (04:47)
--- NOTE | 2022-04-03 05:33 | NUR ---
MS RN CLOSING NOTE PATIENT IN BED, AWAKE, AOX4, ABLE TO MAKE NEEDS KNOWN. AFEBRILE AND NOT IN ANY FORM OF ACUTE DISTRESS. BREATHING EVEN AND NON LABORED. WITH IV ACCESS ON R UPPER ARM MIDLINE 18G RUNNING WITH NS AT 75ML/HR. ALL DUE MED GIVEN, ALL NEEDS MET. SAFETY MEASURES MAINTAINED: KEPT BED IN LOCKED AND IN LOW POSITION. SIDE RAILS UP X2. CALL LIGHT AND TRAY TABLE WITHIN REACH. ENDORSED TO THE RN FOR CONTINUITY OF CARE.
[2022-04-03] MEDS: MORPHINE SULFATE INJ 2 MG/ML DISP.SYRIN IV PRN (08:30)
[2022-04-03] MEDS: PANTOPRAZOLE 40 MG TABLET.DR PO SCH (08:31)
[2022-04-03] MEDS: ENOXAPARIN SODIUM 40 MG/0.4 ML DISP.SYRIN SQ SCH (08:32)
--- NOTE | 2022-04-03 10:20 | NUR ---
SS Consult requested for homelessness. The pt. is a 46-year-old male pt. admitted for drug overdose per EMR. Per EMR, the pt. was given 2 doses of 2 mg of Narcan in the ED. Upon SS consult, the pt. is Alert & Oriented x 4 and makes good eye contact. The pt. appears unkempt with dysphoric mood & flat affect. Pt.s speech is clear and thought process is WNL. Pt. remained, calm & cooperative throughout interview. Pt. denies SI/HI and denies hallucinations. Pt. states he has been diagnosed with a mental illness in the past and cannot remember diagnosis, and states he takes Lamictal medication to manage symptoms. SW explored pt.s drug & ETOH use. Pt. states he uses Heroin, Cocaine and Cannabinoids and some alcohol. Pt. stated he is independent with his ADLs. Pt. states it was an accidental overdose. Per pt. he has been to a rehab before and is not interested at this time. runner worker provided support with motivational interviewing, education regarding opioid dependence, brief intervention and referral to treatment. Pt is currently in the action phase of change and stated that he would like to use Suboxone. SW provided,the following list of Suboxone locations and he accepted them. [facility]: [address] [place] [address] Intake hours: 5:45am9:00am, walk-ins Sunday, Sunday, [facility]: [address] [place] [address] Intake hours: 5:45am12:30pm, Sunday and [facility]: [address] [place] [address] Intake hours: 8:00am2:00pm, Sunday through Sunday SW explored pt.s living situation. Patient states he resides at home [[address] [facility] [address]] with his father VITA tel: [phone] . However, per , the pt.s father expressed that he did not want the pt. to return back to his home after discharge. SW discussed alternate discharge options including care home and pt. refused. SW explored pt.s support system. Pt. stated his father is his support system. Plan: SW provided homeless resources: shelters, storage, rehousing services, food perez, etc. and pt. refused them. Pt. refused to sign homeless waiver and it was placed in the pt.s chart. Pt. refused care home placement and stated No I do have a place to stay. SW provided pt. with bus TAP card and shoes. NIR discussed with андрей MOTTA with preferred pharmacy location: [address] [facility] [address]. The patient currently takes buprenorphine 60 mg p.o. daily with Xanax as needed and will continue this per MD note. Year-round shelters: [facility] [place] [address] [place], [place] [id number] ; [facility] [place] [address] [place] [address]; [facility] [address] [facility]. [facility] [address] Hygiene: [facility]: [address] [place] [facility] ; [facility] [address] [facility] ; [facility] [address] [facility] . Food Resources: [place] [facility] at [facility]- [address] [facility]; Meet Each Need with Dignity ([facility]) [address] [facility]; [facility] [address] [facility]; [facility] 9468 [facility] [place] [facility]. Mental Health resources provided: [facility] [address] [place] [address] ; [facility] [place] [address] [facility] [address], [place] [address] ; [place] [facility] [address] [place] [address] ; [facility] [place] [address] Healthcare Clinics: [facility] [address] [facility], [address] [place]. [place] ; [facility] [address] [facility] [address] [place] [address]; [facility] [address] [facility] [address] [phone] Counseling--Outpatient [facility] [address] [facility], [place] [address] (Specializes in in-depth psychotherapy for emotional distress: anxiety, depression, interpersonal conflicts, life transitions, childhood abuse) [facility] [address] [place] [address] (Assist with solving problem marital difficulties, separation & divorce, aging parents, & grief, chronic & terminal illness) [facility] [address] [place] [address] (Deal with loss & grief, anxiety, marital difficulties) Homebound/Mental Health Services [address] [facility], [address] [place] [address] (Provide in-home mental services to people who are incapable of leaving their homes) [facility] Senior Service/Resource [facility] [address] [facility] [place] [address] [facility] [address] [facility] [place] [address] PSYCHIATRIC OUTPATIENT SERVICES [facility] Partial Hospitalization and Intensive Outpatient Program (Managed Care and [place] Only)[address] [facility] [phone] [facility] Partial Hospitalization and Outpatient [id number]. [address] [place], [place] [phone] [facility] Xsi[address] [facility] [address] [place], [place] [phone] [facility] Partial Hospitalization and Outpatient Zpiqlba21429 [place], [phone] Substance Abuse resources provided included: [facility] Substance Abuse Self-Helpline ([facility]) ; [facility] [address] [facility]. [place] [address] ; [facility] [place] [address] [facility] [address] ; [facility] Rehabilitation [facility] [address] [facility] [place] [address] ; [facility] [address] [facility] [phone] ; [facility] [address] [facility] [address] ; [facility] [address] [facility] [phone] ; [facility] Substance Abuse Helpline([facility] ; [facility] ; [facility]; [facility]; [facility] [place]; [facility] [place]; [facility] [place]; [place]; [facility] [place]; [facility] [place]; Alcoholics Anonymous -[facility]; [facility]Ywnx-Ksfiljb ; Marijuana Anonymous [facility]; Narcotics Anonymous www.na.org;
== END 2022-04-03 10:15 | disposition home or self-care (01) | DRG 812 ==
LOC: ER 21:20 → TRANSITION 03-30 03:19 → ICU 03-30 08:30 → MED 03-31 19:08
PROVIDERS: ADMIT Nurse Practitioner Acute Care; ATTEND Nurse Practitioner Acute Care
PROC: 5A1945Z Respiratory Ventilation, 24-96 Consecutive Hours (ICD-10-PCS; principal; 2022-03-30)
PROC: 0BH18EZ Insertion of Endotracheal Airway into Trachea, Via Natural or Artificial Opening Endoscopic (ICD-10-PCS; 2022-03-30)
DX: T42.4X1A Poisoning by benzodiazepines, accidental (unintentional), initial encounter (principal); J96.01 Acute respiratory failure with hypoxia; G92.8 Other toxic encephalopathy; E86.0 Dehydration; Z20.822 Contact with and (suspected) exposure to COVID-19; E89.0 Postprocedural hypothyroidism; Z98.890 Other specified postprocedural states; Y92.9 Unspecified place or not applicable; F32.A Depression, unspecified; R79.89 Other specified abnormal findings of blood chemistry; F19.10 Other psychoactive substance abuse, uncomplicated; Z91.51 Personal history of suicidal behavior; Z59.00 Homelessness unspecified; Z72.820 Sleep deprivation; F17.210 Nicotine dependence, cigarettes, uncomplicated; F10.90 Alcohol use, unspecified, uncomplicated; Y90.0 Blood alcohol level of less than 20 mg/100 ml; T40.5X1A Poisoning by cocaine, accidental (unintentional), initial encounter
CPT/HCPCS: 31720; 36415; 36600; 71045-TC; 80048-TC; 80076-TC; 81001; 82803-TC; 83735-TC; 84100-TC; 85025-TC; 87081-TC; 94002-TC; 94003-TC; 94760-TC; 94799-TC; C9113; C9803; G0378; G0480; J0330; J1650; J2060; J2270; J2310; J2405; J2543; J3475; J3490; J7030; J7060

== ENCOUNTER 2022-06-04 10:37 | Emergency (ER) | payer OTHER ==
[~2022-06-04] VITALS: Ht 177.8 cm; Wt 81.6 kg
--- NOTE | 2022-06-04 10:46 | NUR ---
SYLVIE [id number] FROM HOME "was found by parent/dad NOT breating. Pinpoint pupils, 2 mg narcan given on scene by RA. pt placed on bed and connected to monitor. awaiting md orders.
--- NOTE | 2022-06-04 10:50 | NUR ---
ESTABLISHED IV ACCESS. 20G RIGHT SHOULDER.
[2022-06-04] MEDS ORDERED: NALOXONE HCL 0.4 MG/ML AMPUL ONE (10:54)
[2022-06-04] MEDS ORDERED: ONDANSETRON HCL/PF 4 MG/2 ML VIAL ONE (10:54)
[2022-06-04] MEDS: NALOXONE HCL 0.4 MG/ML AMPUL IV ONE ×3 (11:09→12:30)
[2022-06-04] MEDS: ONDANSETRON HCL/PF - ER 4 MG/2 ML VIAL IV ONE (11:10)
[2022-06-04] MEDS ORDERED: NALOXONE PREFILLED SYRINGE 2 MG/2 ML SYRINGE ONE ×2 (11:38→12:29)
--- NOTE | 2022-06-04 11:48 | NUR ---
given narcan 1mg at right hand 20 g , tolerated well, now awake, oriented and would like to go AMA. made aware . explained risks at bedside,
--- NOTE | 2022-06-04 12:03 | NUR ---
Patient does not wish to proceed with medical care recommended by Dr. Robledo. Patient given information related to possible complications, up to and including , which could occur as a result of leaving the hospital at this time. Patient verbalizes understanding of risks involved due to leaving against medical advice. Patient has signed AMA form.
--- NOTE | 2022-06-04 13:00 | NUR ---
PT AMBULATED OUT OF ER WITH STEADY GAIT. AAOX4.
[2022-06-04 13:03] VITALS: BP 113/47
[2022-06-05] MEDS ORDERED: NALO4SPR BNOSTRILS (05:05)
== END 2022-06-04 13:04 | disposition left against medical advice (07) ==
LOC: ER 10:41
DX: R40.4 Transient alteration of awareness (principal); T40.601A Poisoning by unspecified narcotics, accidental (unintentional), initial encounter; F17.200 Nicotine dependence, unspecified, uncomplicated; Z59.00 Homelessness unspecified; Y92.000 Kitchen of unspecified non-institutional (private) residence as the place of occurrence of the external cause
CPT/HCPCS: 99284; 96374; 71045; 96375; 96376; 82962 ×2; J2310 ×3; J2405

== ENCOUNTER 2022-06-04 19:11 | Emergency (ER) | payer OTHER ==
[~2022-06-04] VITALS: Ht 182.9 cm; Wt 77.1 kg
--- NOTE | 2022-06-04 19:13 | NUR ---
SHAWN FOUND AT HOME ALOC PIN POINT PUPILS, 2 OF NARCAN GIVEN EN ROUTE BY PARAMEDICS. DR. YOUNG AT BEDSIDE WITH RT. PT TRANSFERRED TO BED AND CONNECTED TO MONITOR, RESPONSIVE ONLY TO PAINFUL STIMULI. IV ACCESS ESTABLISHED 20G LEFT WRIST. NARCAN GIVEN. PT BECAME AWAKE AND ALERT.
--- NOTE | 2022-06-04 19:24 | NUR ---
COVID SWAB COLLECTED AND SENT TO LAB
[2022-06-04] MEDS ORDERED: NALOXONE PREFILLED SYRINGE 2 MG/2 ML SYRINGE ONE (19:27)
[2022-06-04] MEDS ORDERED: NALOXONE HCL 0.4 MG/ML AMPUL IV ONE (19:30)
[2022-06-04] MEDS ORDERED: LIDOCAINE 2% JEL UROJET 10 ML MM ONE (19:36)
--- NOTE | 2022-06-04 19:45 | NUR ---
URINE COLLECTED AND SENT TO LAB.
[2022-06-04 20:08] LABS: CARBON DIOXIDE 27 mmol/L (21-32); CHLORIDE 100 mmol/L (98-107); CREATININE 1.1 mg/dL (0.6-1.3); GLUCOSE 229 mg/dL (74-106); POTASSIUM 4.9 mmol/L (3.5-5.1); SODIUM SERUM 136 mmol/L (136-145); UREA NITROGEN, BLOOD 24 mg/dL (7-18)
[2022-06-04 20:13] LABS: ACETAMINOPHEN 0 ug/ml (10-30); ALCOHOL, BLOOD < 3 mg/dL (0-0)
--- NOTE | 2022-06-04 20:13 | NUR ---
ABG DONE AT BEDSIDE
[2022-06-04 20:14] LABS: ALANINE AMINOTRANSFERASE 33 U/L (12-78); ALBUMIN 3.8 g/dL (3.4-5.0); ALKALINE PHOSPHATASE 73 U/L (46-116); ASPARTATE AMINOTRANSFERASE 51 U/L (15-37); BASOPHILS % (AUTO) 0.1 % (0.0-2.0); BILIRUBIN,DIRECT 0.2 mg/dL (0.0-0.2); BILIRUBIN,TOTAL 0.5 mg/dL (0.2-1.0); HEMATOCRIT 45 % (39-51); HEMOGLOBIN 14.3 g/dL (13.5-17.5); LYMPHOCYTES # (AUTO) 1.1 K/uL (0.8-4.8); LYMPHOCYTES % (AUTO) 8.9 % (20.0-44.0); MEAN CORPUSCULAR HGB CONC 32 g/dl (31.0-36.0); MEAN CORPUSCULAR VOLUME 98 fL (80-96); MONOCYTES # (AUTO) 0.6 K/uL (0.1-1.30); MONOCYTES % (AUTO) 4.6 % (2.0-12.0); NEUTROPHILS # (AUTO) 10.7 K/uL (1.8-8.9); NEUTROPHILS % (AUTO) 86.4 % (43.0-81.0); RED BLOOD CELL COUNT(AUTO) 4.59 MIL/uL (4.5-6.0); TOTAL PROTEIN, SERUM 7.7 g/dL (6.4-8.2); WHITE BLOOD COUNT (AUTO) 12.4 K/uL (4.3-11.0)
[2022-06-04 20:15] LABS: ABG BASE EXCESS -1.4 mmol/L; ABG PCO2 60.5 mmHg (35.0-45.0); ABG PH 7.266 (7.350-7.450); ABG PO2 75.9 mmHg (75.0-100.0); MetHb 0.1 % (0.0-1.5); O2Hb 92.5 % (94.0-97.0); SITE, ABG Right Radial; VENT MODE, BG 2L NASALCANNULA
[2022-06-04 20:15] LABS: BILIRUBIN,URINE 1+ (NEGATIVE); COLOR,URINE YELLOW (YELLOW); LEUKOCYTE ESTERASE ,URINE NEGATIVE (NEGATIVE); NITRITE, URINE NEGATIVE (NEGATIVE); PROTEIN,URINE 1+ mg/dl (NEGATIVE); UGLUCOSE NEGATIVE (NEGATIVE); UROBILINOGEN,URINE 0.2 EU/dL (0.2)
--- NOTE | 2022-06-04 20:19 | NUR ---
ABG RESULT ATTACHED TO CHART
[2022-06-04 20:31] LABS: BACTERIA,URINE None seen /HPF (None Seen); MUCUS,URINE Many /LPF (None Seen); WBC,URINE 0-2 /HPF (0-3)
[2022-06-04 20:32] LABS: PLATELET COUNT (AUTO) 187 K/uL (150-450)
--- NOTE | 2022-06-05 02:08 | NUR ---
Patient is resting comfortably in bed with eyes closed. Easily aroused. VSS
[2022-06-05] MEDS ORDERED: NALOXONE PREFILLED SYRINGE 2 MG/2 ML SYRINGE IV ONE (03:30)
--- NOTE | 2022-06-05 03:43 | NUR ---
CALLED HILDA ROMAN FROM CRISIS TEAM TO EVALUATE THE PT.
--- NOTE | 2022-06-05 04:35 | NUR ---
ABEL AT THE BED SIDE FOR MILAGROSAL
[2022-06-05] MEDS ORDERED: NALO4SPR BNOSTRILS (05:05)
--- NOTE | 2022-06-05 05:15 | NUR ---
pt cleared by jose alejandro whitman
--- NOTE | 2022-06-05 05:40 | NUR ---
PT IS AWAKE, ALERT AND OX4. AMBULATORY TO THE BATHROOM WITH STEADY GAITS. PO INTAKE TOLERATED WELL. MEDICALLY STABLE FOR D/C PER MD.
--- NOTE | 2022-06-05 05:59 | NUR ---
pt ok to discharge per dr pereira. Patient discharged to home in stable condition. Written and verbal after care instructions given. Patient verbalizes understanding of instruction.Patient is awake and alert to self, day, and place. pt ambulatory with a steady gait. IV removed. Catheter intact and site benign. Pressure and 4x4 applied to site. No bleeding noted.
[2022-06-05 06:01] VITALS: BP 105/71
== END 2022-06-05 06:02 | disposition home or self-care (01) ==
LOC: ER 19:12
DX: R45.851 Suicidal ideations (principal); T40.601A Poisoning by unspecified narcotics, accidental (unintentional), initial encounter; R40.4 Transient alteration of awareness; F19.10 Other psychoactive substance abuse, uncomplicated; Y92.89 Other specified places as the place of occurrence of the external cause; Z59.00 Homelessness unspecified; F10.129 Alcohol abuse with intoxication, unspecified
CPT/HCPCS: 99291; 96374; 93005; 71045; 85025; 80048; 80076; 81001; 36415; 84484; 36600; 87426; 80143; 80320; 80307; J3490; J2310; C9803; G0480

== ENCOUNTER 2024-11-18 19:28 | Emergency (ER) | payer OTHER ==
[~2024-11-18] VITALS: Ht 182.9 cm; Wt 77.1 kg
[2024-11-18 21:13] VITALS: BP 124/91; TEMP 98; O2SAT 95
== END 2024-11-18 21:14 | disposition home or self-care (01) ==
LOC: ER 19:29
DX: T67.01XA Heatstroke and sunstroke, initial encounter (principal); F17.200 Nicotine dependence, unspecified, uncomplicated; F11.20 Opioid dependence, uncomplicated; Z79.899 Other long term (current) drug therapy; Z59.00 Homelessness unspecified; X58.XXXA Exposure to other specified factors, initial encounter; Y93.89 Activity, other specified; Y92.89 Other specified places as the place of occurrence of the external cause; Y99.8 Other external cause status